=== PATIENT | female | born 1975 | race Caucasian/White ===

== ENCOUNTER 2021-05-05 02:53 | Emergency (ER) | payer OTHER ==
[~2021-05-05] VITALS: Ht 172.7 cm; Wt 84.1 kg
[2021-05-05] MEDS ORDERED: TOPI25TA42 PO (03:04)
[2021-05-05] MEDS ORDERED: BUPR75 PO (03:04)
[2021-05-05] MEDS ORDERED: BUPR1FIL SL (03:04)
[2021-05-05] MEDS ORDERED: IBUPROFEN 600 MG TABLET PO ONE (04:00)
[2021-05-05] MEDS ORDERED: ACETAMINOPHEN 325 MG TABLET PO ONE (04:45)
[2021-05-05 06:43] VITALS: BP 116/72
== END 2021-05-05 06:44 | disposition home or self-care (01) ==
LOC: EMS 02:58
DX: S63.602A Unspecified sprain of left thumb, initial encounter (principal); F31.9 Bipolar disorder, unspecified; I10 Essential (primary) hypertension; F17.210 Nicotine dependence, cigarettes, uncomplicated; F11.90 Opioid use, unspecified, uncomplicated; Z91.030 Bee allergy status; Z91.040 Latex allergy status; Z88.2 Allergy status to sulfonamides; Z91.018 Allergy to other foods; W01.0XXA Fall on same level from slipping, tripping and stumbling without subsequent striking against object, initial encounter; Y93.89 Activity, other specified; Y92.89 Other specified places as the place of occurrence of the external cause; Y99.8 Other external cause status
CPT/HCPCS: 99283

== ENCOUNTER 2022-12-10 07:27 | Day surgery (SDC) | payer OTHER ==
[~2022-12-10] VITALS: Ht 175.3 cm; Wt 86.2 kg
[~2022-12-10 07:27] MED LIST: ALBU18HF12 PO; BUPR1FIL3 SL; MELO-108 PO; NALO4SPR NASAL; NAPR-1025 PO; OMEP20CA12 PO; SODIUM CHLORIDE 0.9% 1,000 ML ONE; TOPI25TA42 PO
[2022-12-10] MEDS ORDERED: MELO-381 PO (07:52)
[2022-12-10] MEDS ORDERED: PROP10TA73 PO (07:52)
[2022-12-10] MEDS ORDERED: CHOL400T58 PO (07:52)
[2022-12-10] MEDS ORDERED: BUPR-345 PO (07:52)
[2022-12-10] MEDS ORDERED: GABA-1216 PO (07:52)
[2022-12-10] MEDS ORDERED: TAMS-13 PO (08:28)
[2022-12-10] MEDS ORDERED: SODIUM CHLORIDE 0.9% 1,000 ML IV ONE (11:00)
[2022-12-10] MEDS ORDERED: LIDOCAINE/PF 2% 5 ML VIAL IM ONE (12:00)
[2022-12-10] MEDS ORDERED: PROPOFOL 1% 20 ML VIAL IVP ONE (12:00)
== END 2022-12-10 12:10 | disposition home or self-care (01) ==
LOC: SURGERY 07:27
PROVIDERS: ATTEND Internal Medicine Gastroenterology
DX: Z12.11 Encounter for screening for malignant neoplasm of colon (principal); K64.4 Residual hemorrhoidal skin tags; I10 Essential (primary) hypertension; K64.8 Other hemorrhoids; K74.60 Unspecified cirrhosis of liver; K20.90 Esophagitis, unspecified without bleeding; Z98.890 Other specified postprocedural states; Z91.040 Latex allergy status; Z79.899 Other long term (current) drug therapy
CPT/HCPCS: 45378; 43239; C1769; J2704; J3490; J7030